=== PATIENT | female | born 1990 | race African-American/Black ===

== ENCOUNTER 2016-10-08 07:00 | Inpatient (IN) | payer OTHER ==
[~2016-10-08] VITALS: Ht 160 cm; Wt 97.5 kg
[2016-10-08 11:05] VITALS: BP 114/73
[2016-10-08] MEDS ORDERED: SYNTHROID125 MCG PO (11:06)
--- NOTE | 2016-10-08 12:23 | History & Physical ---
General Information and HPI MD Statement: I have seen and personally examined CAMRON ZARAGOZA and documented this H&P. The patient is a 25 year old female at [] weeks and [] days gestation who presented with a chief complaint of []. 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 Para: 1 Last Menstrual Period: 08/2015 Past life insurance underwriter History: C/S Surgical History Pertinent Surgical History: Past Family/Social History Psychosocial History Smoking Status: Never Smoked Review of Systems Review of Systems: 13 PT ROS Exam & Diagnostic Data Last 24 Hrs of Vital Signs/I&O Vital Signs Date Time Temp Pulse Resp B/P B/P Pulse O2 O2 Flow FiO2 Mean Ox Delivery Rate 10/08 1105 114/73 Intake & Output 10/08 1600 10/08 0800 10/08 0000 Intake Total Output Total Balance Patient 215 lb Weight Obstetric Exam Wgt Gained During : 16 Pelvimetry: UNTESTED Dilation (cm): 0 Effacement (%): 0 Station: 0 Membranes: intact Fluid: unknown Fundal Height (cm): 39 Multiple Gestation? No Contractions: NONE Patient for Induction? No Labs Blood Type & Rh: A+ Antibody Screen: NEG Hct/Hgb & Platelets #1: Hct/Hgb & Platelets #2: Rubella: I VDRL #1: NR VDRL #2: NR HbsAg: NEG HIV #1: NEG HIV #2 NEG 1 Hr P Group B Strep: NEG Initial Ultrasound: NEG Anatomy Ultrasound: NEG Genetic Testing: NEG Assessment/Plan As Ranked By This Provider Problem List: 1. Core Measures/Miscellaneous Venous Thromboembolism VTE Risk Factors: / VTE Contraindications: No Contraindications VTE Diagnosis: No Beta Zelda Is Beta Zelda a Home Med? No Antibiotics Is Patient on Antibiotics? No
[2016-10-09 08:34] LABS: ABSOLUTE BASOPHIL COUNT 0 /CUMM (0.0-0.2); ABSOLUTE EOSINOPHIL COUNT 0 /CUMM (0.0-0.7); ABSOLUTE GRANULOCYTE CT 7.4 /CUMM (1.4-6.5); ABSOLUTE LYMPH COUNT 1.7 /CUMM (1.2-3.4); ABSOLUTE MONOCYTE COUNT 0.9 /CUMM (0.10-0.60); BASOPHIL % 0.3 % (0.0-2.0); EOSINOPHIL % 0 % (0-5); GRANULOCYTE % 74.5 % (42.2-75.2); HEMATOCRIT 31.4 % (37-47); MEAN CORPUSCULAR HGB 26.9 PG (27.0-31.0); MEAN CORPUSCULAR HGB CONC 32.1 G/DL (33.0-37.0); MEAN CORPUSCULAR VOLUME 83.7 FL (81.0-99.0); MEAN PLATELET VOLUME 11.9 FL (7.4-10.4); PLATELET COUNT 137 /CUMM (130-400); RED BLOOD CELL CT 3.75 /CUMM (4.20-5.40)
--- NOTE | 2016-10-09 10:31 | Operative Report ---
Operative/Inv Procedure Report Surgery Date: 10/08/16 Name of Procedure: Repeat low flap transverse section via Pfannenstiel skin incision Pre-Operative Diagnosis: Term previous section Post-Operative Diagnosis: Same Estimated Blood Loss: 500 Surgeon/Estimating Engineer: DESEAN MORGAN,DAVID Arizmendi and Dr. Chris Logan Anesthesia: block Operative/Procedure Note Note: Patient was seen in the upper and placed prone position after adequate skin testing for spinal anesthesia the skin was cut to an old Pfannenstiel skin incision was carried down to rectus fascia which was cut currently fashion under direct peritoneal cavity is entered into the abdomen lobe F was placed on the OR and the incision visceral peritoneum of the uterus was dissected anteriorly at this point the uterus was entered with the back knife on specimen from the field patient however that well at this point the episode of the abdominal wall was accompanied with her stapler machine was waiting to 80 in the resuscitation the placenta was delivered manually noted to be not intact membranes were removed by numerous Alexandra's at the end of the removal of the membranes the placenta and membranes were sent to pathology for evaluation. The uterine cavity was curetted using a horseshoe correct. Hemostasis was apparent intravenous present as well as intramyometrial Pitocin was used to 8 and contractility the uterus was AROUND 1 SUTURE OF 0 TIMES 2 INTERRUPTED [id number] 0 WERE USED FOR HEMOSTASIS WAS RETURNED TO ABDOMINAL CAVITY FOUND TO BE A METASTATIC THE UTERUS WAS WELL CONTRACTED THE PERITONEUM WAS REAPPROXIMATED USING 0 FOSTER'S REAPPROXIMATED TO DISTINCT SUTURES #1 SUBCUTANEOUS TISSUES BOVIE COAGULATED FOUND TO BE HEMOSTATIC THE SKIN WAS REAPPROXIMATED NIHARIKA AT THE END THE CASE THE URINE WAS CLEAR AT COUNTS CORRECT AT MOTHER AND INFANT TRANSFERRED RECOVERY ROOM AWAKE ALERT Findings: C general patient was taken to the operating room placed supine position after adequate skin testing for spinal narcotic and a timeout of the abdomen was prepped and draped usual fashion through an old Pfannenstiel skin incision skin was cut was carried down to rectus fascia which was concurrently fascia I direction with curved Sharma as well on the peritoneal cavity was entered high into the abdomen the low bladder the valve was placed lower in the incision the visceroperitoneum of the uterus was dissected anteriorly A bladder Severiano was developed in the lower uterine segment the uterus was next entered with the back of a knife the was delivered over the abdominal wall after on specimen from the field the patient tolerated that well. At this point the cord was doubly clamped and cut was handed to be Miri and was waiting delivered into a resuscitation placental was delivered manually the placenta was intact but there were membranes thick membranes that were removed using numerous Alexandra' s these were sent to pathology at the end of the removal of the membranes a sharp curettage of the uterus with a horseshoe curet was performed hemostasis was apparent intravenous Pitocin as well as intramyometrial Pitocin was used for uterine contractility the uterus was RUNNING LOCKING SUTURE OF 00 (INTERRUPTED [id number] RUNNING LOCKING 0 SUTURE HEMOSTASIS WAS USED TURNED TO ABDOMINAL CAVITY THE ABDOMEN WAS IRRIGATED COPIOUS AMOUNTS OF SALINE UNTIL CLEAR EXAMINED FOUND TO BE HEMOSTATIC PERITONEUM WAS REAPPROXIMATED 0 PHOSPHORUS WAS REAPPROXIMATED TO CONTINUE SUTURES #1 SKIN WAS REAPPROXIMATED NIHARIKA AT THE END THE CASE BOVIE COAGULATION SUBCUTANEOUS TISSUE WAS PERFORMED PATIENT TOLERATED THAT WELL AND NIHARIKA WERE APPLIED TO SKIN AT THE END THE CASE THE URINE WAS CLEAR MOTHER AND WERE TRANSFERRED RECOVERY ROOM AWAKE AND ALERT COUNTS CORRECT
--- NOTE | 2016-10-10 09:44 | PN- Post Delivery/GYN ---
Subjective Subjective: C/O BURNING WITH URINATION Objective Last 24 Hrs of Vital Signs/I&O PER PAPER CHART Physical Exam: PE TALKATIVE BF IN NAD ABD SOFT DISTENTION INCISION CDI EXT - EDEMA - HOMANS BACK -CVA BILATERAL Assessment/Plan Assessment/Plan ASSESS S/P C/S PLAN CONT PPC
[2016-10-10] MEDS ORDERED: PERCOCET 5-3251 EACH PO (09:45)
[2016-10-10] MEDS ORDERED: IBUPROFEN800 M1 PO (09:45)
--- NOTE | 2016-11-03 18:33 | Surgical Discharge Summary ---
Visit Information Visit Dates Admission Date: 10/08/16 Discharge Date: 10/11/16 History of Present Illness Chief Complaint: I'm here to have baby Surgical History Pertinent Surgical History: Psychosocial History What is Your Primary Language? Syriac Review of Systems: 13 point review of systems negative Physical Exam: Pleasant black female HEENT anicteric Abdomen soft incision clean dry and intact fundus firm nontende Pelvic long and closed decreased lochia Extremities +1 edema Negative [facility] Course Course Attending Physician: DAVID ANTON MD Primary Care Physician: TAMICA MORGAN,[facility] Course: Patient was admitted following repeat section Allergies: Coded Allergies: Penicillins (DIFFICULTY BREATHING 11/14/15) Disposition Summary Disposition Principal Diagnosis: Status post section Additional Diagnosis: Anemia Discharge Disposition: home or self care Discharge Instructions General Discharge Information Code Status: Full Code Patient's Diet: Regular Patient's Activity: Pelvic rest no heavy lifting for 6 weeks no driving for 2 weeks Follow-Up Instructions/Appts: 1 week return visits to examined incision 2 weeks in my office Medications at Discharge Discharge Medications: Continue taking these medications: Levothyroxine Sodium (Synthroid) 125 MCG TABLET 1 Tablet ORAL DAILY Start taking the following new medications: Ibuprofen (Ibuprofen) 800 MG TABLET 800 Milligram ORAL EVERY SIX HOURS NEEDED as needed for UTERINE CRAMPING Qty = 30 No Refills Comments: Last Taken:10/11/16 Time:1420 Oxycodone HCl/Acetaminophen (Percocet 5-325 MG Tablet) 5 MG-325 MG TABLET 1 Tablet ORAL EVERY 4 HOURS NEEDED as needed for PAIN SCALE 4-6 (MODERATE ) Qty = 30 No Refills Comments: Last Taken:10/11/16 Time:1420
== END 2016-10-11 15:15 | DRG 540 ==
LOC: GNO 10:29
PROVIDERS: ADMIT Specialist
PROC: 10D00Z1 Extraction of Products of Conception, Low, Open Approach (ICD-10-PCS; principal; 2016-10-08)
DX: O34.211 Maternal care for low transverse scar from previous cesarean delivery (principal); N85.8 Other specified noninflammatory disorders of uterus; Z3A.39 39 weeks gestation of pregnancy; Z37.0 Single live birth; E03.9 Hypothyroidism, unspecified
CPT/HCPCS: GNOS; 36415; 81001; 87086; 87389; 88307; J0690; J1200; J1580; J1650; J1885; J2310; J7120